=== PATIENT | female | born 1965 | race Caucasian/White ===

== ENCOUNTER 2023-07-02 11:15 | Outpatient (CLI) | payer BC, SELFPAY | END 2023-07-02 11:16 | disposition home or self-care (01) | PROVIDERS: Visit Provider Nurse Practitioner Family | DX: R19.7 Diarrhea, unspecified (principal); R11.0 Nausea; N61.0 Mastitis without abscess | CPT/HCPCS: 80053; 85025; 85651; 86140; 87493 ==

== ENCOUNTER 2024-07-05 10:14 | Outpatient (CLI) | payer BC, SELFPAY ==
[2024-07-05 13:56] LABS: Strep A DNA Probe* NOT DETECTED (Not Detectd)
[2024-07-05 14:03] LABS: SARS PCR* Negative SARS-CoV-2 (Negative)
== END 2024-07-05 10:15 | disposition home or self-care (01) ==
PROVIDERS: PCP Nurse Practitioner Family; Visit Provider Nurse Practitioner Family
DX: J11.1 Influenza due to unidentified influenza virus with other respiratory manifestations (principal); J02.9 Acute pharyngitis, unspecified
CPT/HCPCS: 87635; 87651